=== PATIENT | female | born 1975 | race Caucasian/White ===

== ENCOUNTER → 2017-03-28 | Day surgery (SDC) | payer BC ==
[~2017-03-28] MED LIST: ADVIL200 M1 PO; ALLEGRA PO; FLONASE ALLERG9.9 ML; PROZAC10 MG PO; TRAMADOL HCL50 M1 PO
--- NOTE | ~2017-03-28 | OR ---
Unit #: [id number] #: [id number] Patient: AGUILAR MCDOWELL [id number] [address] [place], [place] [address] [id number] O MR#: [id number] NAME: AGUILAR MCDOWELL ROOM: Date of Procedure: 03/28/2017 Admission Date: 03/28/2017 Surgeon: Rafy Gomez M.D. : 1975 Attending Physician: Rafy Gomez M.D. Primary Care Physician: Kendal Limon M.D. OPERATIVE REPORT PREOPERATIVE DIAGNOSES Post-laminectomy syndrome, degenerative disk disease, radiculopathy. POSTOPERATIVE DIAGNOSES Post-laminectomy syndrome, degenerative disk disease, radiculopathy. PROCEDURE PERFORMED Lumbar epidural steroid injection with fluoroscopic guidance for needle localization. INDICATIONS FOR PROCEDURE The patient is a 42-year-old female, 6 months status post laminectomy. She did extremely well postoperatively and few months later while doing some exercise, the pain re-flared. It is worsened the leg, then it was in the back, but now it is present in the back, where it was not present there preoperatively. Workup was not demonstrated new disk herniation. There was some scar tissue around the left L4 nerve root and the impression is of radiculitis. She has settled temporarily with the Medrol Dosepak, but this did not maintain any improvement. Plan is for trial of epidural steroids to address this symptomatology. DESCRIPTION OF PROCEDURE The patient was placed in a seated position. Standard monitors were applied. Sterile prep and drape of the lumbar area was performed. The skin then at the L4-L5 level was localized with 1% lidocaine. An 18-gauge Hustead needle was then advanced via loss of resistance technique and fluoroscopic guidance in toward the epidural space. The patient did not complain of pain or paresthesia during needle advancement. After confirming proper positioning with fluoroscopy and radiographic contrast, 80 mg of Depo-Medrol and 3 mL of preservative-free normal saline were deposited. The patient has some reproduction of her pain during the injection process. This quickly resolved. No local anesthetic was used due to the fact the patient was driving herself. The patient tolerated the procedure otherwise well and was discharged to the recovery room in stable condition. Dictated by... Rafy Gomez M.D. LHP/modl Unit #: [id number] #: [id number] Patient: AGUILAR MCDOWELL TD: 03/29/2017 02:45 JOB #: [id number] OPERATIVE REPORT Page 1 of 1 X Rafy Gomez MD X PROCEDURE OPERATIVE NOTE
== END | disposition home or self-care (01) ==
LOC: CCSC 07:45
DX: M96.1 Postlaminectomy syndrome, not elsewhere classified (principal); M51.16 Intervertebral disc disorders with radiculopathy, lumbar region; Z79.1 Long term (current) use of non-steroidal anti-inflammatories (NSAID); Z79.899 Other long term (current) drug therapy
CPT/HCPCS: J1040; J2250

== ENCOUNTER → 2017-04-18 | Day surgery (SDC) | payer BC ==
--- NOTE | ~2017-04-18 | OR ---
Unit #: [id number] #: [id number] Patient: AGUILAR MCDOWELL [id number] [address] [place], [place] [address] [id number] O MR#: [id number] NAME: AGUILAR MCDOWELL ROOM: Date of Procedure: 04/18/2017 Admission Date: 04/18/2017 Surgeon: Rafy Gomez M.D. : 1975 Attending Physician: Rafy Gomez M.D. Referring Physician: Rafy Gomez M.D. Primary Care Physician: Kendal Limon M.D. OPERATIVE REPORT JOB NOTE: CC: [facility] PREOPERATIVE DIAGNOSES Back pain, radiculopathy, and post-laminectomy. POSTOPERATIVE DIAGNOSES Back pain, radiculopathy, and post-laminectomy. PROCEDURE PERFORMED Lumbar epidural steroid injection with fluoroscopic guidance for needle localization. INDICATIONS FOR PROCEDURE The patient is a 42-year-old female, status post lumbar diskectomy in 10/2016. She did very well initially and had a return of some of left lower extremity pain after fairly physical exercise. She also had increased back and right lower extremity pain. At that point, her right-sided paracentral small disk protrusion was noted as well as granulation tissue surrounding the left L4 nerve root. Epidural steroid injection done 2 weeks ago resulted in resolution of the back pain and right lower extremity pain. She still is having some left leg pain that was better for several days, but return toward its baseline possibly due to increased level of activities. Based on her history, pathology, symptomatology, and treatment options, we are going to proceed with a repeat injection today. If it does not sufficient, we may look at doing a transforaminal to address that left L4-L5 level. DESCRIPTION OF PROCEDURE The patient was placed in a seated position. Standard monitors were applied. Sterile prep and drape of the lumbar area was performed. The skin at the L4-L5 level was localized with 1% lidocaine. An 18-gauge Voxel needle was then advanced via loss of resistance technique and fluoroscopic guidance in toward the epidural space. After confirming proper positioning with fluoroscopy and radiographic contrast, 80 mg of Depo-Medrol and 2 mL of preservative-free normal saline were deposited. The patient tolerated the procedure otherwise well and was discharged to the recovery room in stable condition. Dictated by... Rafy Gomez M.D. Unit #: [id number] #: [id number] Patient: AGUILAR MCDOWELL LHP/modnikko TD: 04/18/2017 17:08 JOB #: [id number] OPERATIVE REPORT Page 1 of 1 X Rafy Gomez MD X PROCEDURE OPERATIVE NOTE
== END | disposition home or self-care (01) ==
LOC: CCSC 10:44
DX: M54.16 Radiculopathy, lumbar region (principal); Z79.1 Long term (current) use of non-steroidal anti-inflammatories (NSAID); Z79.899 Other long term (current) drug therapy; Z98.890 Other specified postprocedural states
CPT/HCPCS: J1040; J2250

== ENCOUNTER → 2017-05-18 | Day surgery (SDC) | payer BC ==
--- NOTE | ~2017-05-18 | OR ---
Unit #: [id number] #: [id number] Patient: AGUILAR MCDOWELL [id number] [address] [place], [place] [address] [id number] O MR#: [id number] NAME: AGUILAR MCDOWELL ROOM: Date of Procedure: 05/18/2017 Admission Date: 05/18/2017 Surgeon: Rafy Gomez M.D. : 1975 Attending Physician: Rafy Gomez M.D. Primary Care Physician: Kendal Limon M.D. OPERATIVE REPORT JOB NOTE: CC: [facility] PREOPERATIVE DIAGNOSES Radiculopathy, back pain, post-laminectomy syndrome. POSTOPERATIVE DIAGNOSES Radiculopathy, back pain, post-laminectomy syndrome. PROCEDURE PERFORMED Transforaminal epidural steroid injection with fluoroscopic guidance for needle localization. INDICATIONS FOR PROCEDURE The patient is a 42-year-old female with left lower extremity pain. She is status post lumbar diskectomy in 10/2016. She was doing well initially and had resurgence of pain in her left leg. Workup demonstrated granulation tissue surrounding the left L4-L5 nerve root and slight right paracentral disk bulge. The patient was given a trial of 2 translaminar epidural steroid injections, which helped with her back and right leg, but did not help the left leg at all. Plan is for trial of transforaminal injection to address the left leg pain if remains. She will pay attention how she does with the local anesthetic and then how she does further down the line. DESCRIPTION OF PROCEDURE The patient was placed in a prone position. Standard monitors were applied. Sterile prep and drape of the lumbar area was performed. The skin then to the left of midline at the L4-L5 level was localized with 1% lidocaine. A long 22-gauge Quincke point spinal needle was then advanced via biplanar fluoroscopy to bring the needle tip to within the edge of the L4-L5 neural foramina. The patient did not have any complaints of paresthesia. After confirming proper positioning with biplanar fluoroscopy and radiographic contrast, a dose of 80 mg of Depo-Medrol and 1 mL of 0.25% bupivacaine were deposited. The patient tolerated the procedure otherwise well and was discharged to the recovery room in stable condition. Dictated by... Rafy Gomez M.D. [facility] Unit #: [id number] #: [id number] Patient: AGUILAR MCDOWELL TD: 05/18/2017 15:45 JOB #: [id number] OPERATIVE REPORT Page 1 of 1 X Rafy Gomez MD X PROCEDURE OPERATIVE NOTE
== END | disposition home or self-care (01) ==
LOC: CCSC 11:35
DX: M96.1 Postlaminectomy syndrome, not elsewhere classified (principal); M54.16 Radiculopathy, lumbar region; Z79.899 Other long term (current) drug therapy
CPT/HCPCS: J1040; J2250